=== PATIENT | male | born 1990 | race Caucasian/White ===

== ENCOUNTER 2025-03-03 14:38 | Emergency (ER) | payer SELFPAY ==
[2025-03-03] VITALS (16 sets, daily range): BP systolic 124–153; BP diastolic 80–93; PULSE 108–139; RESP 12–21; TEMP 37.4; O2SAT 95–99
--- NOTE | 2025-03-03 15:46 | PC.NURSE ---
Pt removed c collar and refuses to wear it.
--- NOTE | 2025-03-03 16:03 | ED.SEIZURE ---
HPI - Seizure General Chief Complaint: Seizure Stated Complaint: ?seizure Time Seen by Provider: 03/03/25 15:48 History of Present Illness HPI Narrative: This is a 34-year-old male who presents to the ED for seizure activity. Patient was leaving senior living and began to feel nauseous and lightheaded like he was about to have a seizure so the senior living nurse gave gave him 500 mg Keppra p.o. and shortly after taking this he did have a seizure the last approximately 10 seconds. He subsequently had another seizure lasted 10. Does have reported history of seizures but has not been on Keppra as he has not been able to afford it. He has not taken Keppra in at least 2 years. He reports that he feels back to his baseline at this time. Related Data Allergies Allergy/AdvReac Type Severity Reaction Status Date / Time No Known Allergies Allergy Verified 03/03/25 14:44 Review of Systems Review of Systems: Gen.: Denies fevers or chills Eyes: Denies eye pain or visual change ENT: Denies congestion Respiratory: Denies shortness of breath or cough CV: Denies chest pain or palpitations GI: Denies abdominal pain nausea, emesis or diarrhea denies burning, urgency, frequency or hematuria Musculoskeletal: Denies back pain or muscle pain Neuro: Denies numbness, tingling, weakness or focal weakness Skin: Denies rash Except as documented, all other systems reviewed and negative Exam Narrative: APPEARANCE: No acute distress, nontoxic, resting in bed EYES: EOMI HEENT: Normocephalic, atraumatic, OMM Neck: No cervical tenderness to palpation. RESPIRATORY: No respiratory distress Clear to auscultation bilaterally with no rhonchi wheezing or rales. CARDIOVASCULAR: Regular rate and rhythm without murmurs rubs or gallops. ABDOMINAL: Soft, nontender, nondistended, no rebound or guarding MUSCULOSKELETAl: Moves all extremities. No clubbing, cyanosis or edema. No obvious deformities. NEURO: Awake and alert. Following commands, speech normal, no focal deficits SKIN:: Warm, dry. No rashes lesions or abrasions PSYCHIATRIC: Normal affect/mood, Course Vital Signs Vital signs: Vital Signs Pulse Rate 121 H 03/03/25 14:43 Respiratory Rate 16 03/03/25 14:43 Pulse Oximetry 99 03/03/25 14:43 Temperature 99.4 F 03/03/25 14:44 Pulse Rate 115 H 03/03/25 16:16 Respiratory Rate 15 03/03/25 16:16 Blood Pressure 124/80 03/03/25 16:16 Pulse Oximetry 98 03/03/25 16:16 Oxygen Delivery Room Air 03/03/25 14:44 MDM - Seizure MDM Narrative Medical decision making narrative: 34-year-old male who presented to the ED for seizures. The initial evaluation, patient was in no acute distress, afebrile, hemodynamically stable. Had no focal neurologic changes. Heart lungs clear. Abdomen soft and nontender. No cervical tenderness. Patient has reached his baseline and has a history of seizures. He has not been able to take his Keppra at 2 to cost. He has not followed with a neurologist ever and has weeping given Keppra in the past from an EM provider. He will be given a refill of his Keppra and was given a referral to Neurology for further evaluation. Patient was agreeable to this plan. Given strict return precautions. Differential Diagnosis Differential diagnosis: Likely intractable seizure disorder, generalized seizure and epileptic seizure Medical Records Attestation: I reviewed the patient's medical records. Discharge Plan Discharge Clinical Impression: Generalized seizure Patient Disposition: Home Condition: Stable Instructions: Antibiotic Form, Epilepsy (ED) Additional Instructions: Take Keppra as prescribed. Your given a referral to Neurology for further evaluation. Return to ED for any new or worsening symptoms. Patient Language: Upper Sorbian Prescriptions: New levetiracetam [Keppra] 500 mg tablet 500 mg PO BID Qty: 60 0RF Follow-up/Referrals: Abhijeet Hunter MD [Physician, Neurology] PHYSICIAN,POSTIE [Primary Care Provider, Internal Medicine]
--- NOTE | 2025-03-03 16:32 | PCCCNOTE ---
Provided a cab voucher to his home address d/t lack of transportation.-casie
== END 2025-03-03 16:35 | disposition home or self-care (01) ==
PROVIDERS: Emergency Provider Student in an Organized Health Care Education/Training Program
DX: G40.909 Epilepsy, unspecified, not intractable, without status epilepticus (principal); T42.6X6A Underdosing of other antiepileptic and sedative-hypnotic drugs, initial encounter; Z91.120 Patient's intentional underdosing of medication regimen due to financial hardship
CPT/HCPCS: 99283